=== PATIENT | female | born 1955 | race Caucasian/White ===

== ENCOUNTER → 2024-09-23 | Outpatient (CLI) | payer MEDICARE, BC, SELFPAY ==
--- NOTE | 2024-09-23 08:30 | XR_ITS ---
Examination: Diagnostic digital mammography, unilateral, left Computer aided detection 3-D breast Tomosynthesis, unilateral Date and time of exam: September 23, 2024 0803 hours INDICATIONS: Mammogram January 16, 2024 probably benign calcifications retroareolar region left breast Technique: Nonmagnified MLO, CC views of the left breast have been obtained, reconstructed from 3-D Tomosynthesis images. R2 computer aided detection program utilized for evaluation of suspicious masses and/or abnormal calcifications. 3-D Tomosynthesis images obtained. Findings: Scattered areas of fibroglandular density. Grouped microcalcifications retroareolar region left breast, which currently appear suspicious Impression: BI-RADS category 4: Suspicious for malignancy Suspicious microcalcifications are confirmed retroareolar region left breast, biopsy is needed to exclude breast carcinoma, these calcifications are amenable to stereotactic breast biopsy for diagnosis
== END | disposition home or self-care (01) ==
LOC: CDIM 07:55
PROVIDERS: PCP Internal Medicine; Referring Provider Internal Medicine; Visit Provider Internal Medicine
DX: R92.342 Mammographic extreme density, left breast (principal); R92.0 Mammographic microcalcification found on diagnostic imaging of breast
CPT/HCPCS: 77061; 77065; G0279

== ENCOUNTER → 2024-11-09 | Outpatient (CLI) | payer MEDICARE, SELFPAY ==
[2024-11-09 09:53] LABS: Basophils % (Auto) 0 % (0-2.5); Eosinophils # (Auto) 0.1 Thou/mm3 (0.0-0.5); Eosinophils % (Auto) 1 % (0-10); Hematocrit 48.9 % (36.0-46.0); Immature Granulocytes % (Auto) 0 % (0-0); Immature Granulocytes Auto 0.03 Thou/mm3 (0.00-0.00); Lymphocytes # (Auto) 3.4 Thou/mm3 (1.0-4.8); Lymphocytes % (Auto) 32 % (10-50); Mean Corpuscular HGB Conc 32.7 g/dl (31.0-37.0); Mean Corpuscular Hemoglobin 27.4 pg (25.0-35.0); Mean Corpuscular Volume 84 fL (80-100); Monocytes # (Auto) 0.6 Thou/mm3 (0.0-0.8); Monocytes % (Auto) 6 % (0-12); Neutrophils # (Auto) 6.3 Thou/mm3 (1.8-7.7); Neutrophils % (Auto) 60 % (37-80); Nucleated Red Blood Cell % 0 /100 WBC (0); Partial Thromboplastin Time 26.8 Seconds (22.0-36.0); Platelet Count 296 Thou/mm3 (140-440); Red Blood Count 5.85 Miln/mm3 (4.00-5.20); White Blood Count 10.6 Thou/mm3 (3.6-11.0)
== END | disposition home or self-care (01) ==
LOC: SLAB 11-12 09:17
PROVIDERS: PCP Internal Medicine; Referring Provider Internal Medicine; Visit Provider Radiology Diagnostic Radiology
DX: R92.0 Mammographic microcalcification found on diagnostic imaging of breast (principal)
CPT/HCPCS: 36415; 85025; 85610; 85730

== ENCOUNTER 2024-12-03 14:09 | Outpatient (AMB) | payer MEDICARE, BC, SELFPAY ==
[2024-12-03 14:17] VITALS: BP 123/84; PULSE 105; RESP 18; TEMP 36.2; O2SAT 98; BMI 33.7
--- NOTE | 2024-12-03 14:17 | GSCOFFNT_ITS ---
Vital Signs - [facility] 12/03/24 14:17 Height 1.65 m Height Method Stated Weight 91.824 kg Weight Measurement Method Standing Scale BMI 33.7 BP 123/84 Blood Pressure Source Automatic Cuff Blood Pressure Location Left Upper Arm Position Sitting Respiration 18 Pulse 105 H Pulse Source Monitor Temp 97.2 F Temp Source Temporal Artery Scan Pulse Oximetry (%) 98 Oxygen Delivery Method Room Air Med/Allergies Allergies & Medications Allergies haloperidol (From Haldol) Allergy (Severe, Verified 12/03/24 14:18) arched back ketorolac (From Toradol) Allergy (Intermediate, Verified 12/03/24 14:18) redness and itching morphine Adverse Reaction (Unknown, Verified 12/03/24 14:18) HEADACHE Medication Reconciliation hydrochlorothiazide 25 mg tablet 25 mg PO QAM 06/02/24 [History Confirmed 12/03/24] levothyroxine 100 mcg tablet 100 mcg PO QDAY 06/02/24 [History Confirmed 12/03/24] losartan 100 mg tablet 100 mg PO QDAY 06/02/24 [History Confirmed 12/03/24] metoprolol tartrate 75 mg tablet 75 mg PO QDAY 06/02/24 [History Confirmed 12/03/24] ibuprofen 600 mg tablet 600 mg PO Q6H PRN pain #30 tabs 06/03/24 [Rx Confirmed 12/03/24] tramadol 50 mg tablet 50 mg PO Q6H PRN pain #20 tabs 06/11/24 [Rx Confirmed 12/03/24] MA Intake Visit Data Collection New Patient or Established: Established Patient (seen at [facility] within 3 years) Seen by Clinical Staff ONLY (RN/MA): No Pain Present Currently: No Proposal Development Manager Required: No PCP or OBGYN visit in last 3 months: Yes Hx Now: No Do You Feel Safe at Home: Yes Authorities Contacted: N/A Smoking Status Smoking Status: Current some day smoker Cessation Counseling Provided: STEPHEN was advised that quitting smoking is the single most important factor to protect the health of themselves and their family. Discussed the benefits of quitting smoking with patient. Encouraged patient to quit smoking and provided Cessation assistance materials and resources. Tobacco Use: Nicotine Years smoked: 5 Are you interested in quitting?: No Immunization / Flu Flu Vaccine in the Last 12 Months: No Flu Vaccine Exclusion Criteria: No Exclusion Criteria Past Medical History Past Medical History NEUROLOGIC: Positive Neurological Disorders and Seizures CARDIAC: Positive Cardiac Disorders, Hypercholesterolemia, Hypertension and Varicose Veins; Negative Congestive Heart Failure RESPIRATORY: Negative Chronic Obstructive Pulmonary Disease (COPD) GASTROINTESTINAL: Positive Gastrointestinal Disorders, Hemorrhoids and Obesity; Negative Hepatitis GENITOURINARY: Positive Genitourinary Disorders (interstitial cystitis); Negative Renal Disease REPRODUCTIVE: Positive Previous Pregnancies MUSCULOSKELETAL: Positive Arthritis and Scoliosis ENDOCRINE: Positive Endocrine Disorders and Hypothyroidism; Negative Diabetes Mellitus Type 1 or Diabetes Mellitus Type 2 HEMATOLOGIC: Negative Blood Disorders PSYCHO/SOCIAL: Positive Anxiety OTHER HISTORY: Positive Hospitalization (surgery), Blood Transfusions, Anesthesia Reactions (hard to wake up), Chicken Pox, Measles and Mumps; Negative Autoimmune Disease, Shingles, Blood Transfusion Reaction or Cancer Family History FAMILY HISTORY: Positive Family Respiratory Disorders, Family Cardiac Disorders, Family Cancer and Family Surgery; Negative Family Psychiatric Problems, Family Gastrointestinal Problems or Family Anesthesia Reaction Surgical History SURGICAL: Positive Cardiac Surgery, Angiogram ( clear), Thyroidectomy, Tonsillectomy, Abdominal Surgery, Open Reduction Internal Fixation (right elbow) and Hysterectomy Social History SMOKING STATUS: Smoking status: Current some day smoker ALCOHOL: Alcohol Intake: Never HOUSING: Housing: House HPI HPI Narrative 69F with HTN, HLD, hypothyroidism, obesity referred for symptomatic hemorrhoids s/p surveillance colonoscopy and THD 06/03 here for follow up. During colonoscopy pt was found to have a TVA >5cm which was removed piecemeal and she is due for colonoscopy Dec 2024. She states she has had intermittent bleeding from the perianal skin lately, she believes it is a pimple but denies any pain or itching, is having regular BMs ROS Review of Systems Systems Reviewed: All systems reviewed, normal except as documented Objective/Exam General General Appearance: alert, cooperative and well groomed Resp Respiratory exam: Absent respiratory distress Assessment & Plan Diagnosis / Problem List (1) Encounter for colonoscopy due to history of adenomatous colonic polyps: Status: Acute Assessment & Plan: 69F with large TVA removed piecemeal on colonoscopy 05/2024 due for repeat colonoscopy. We discussed benefits/risks and prep, pt understands and agrees to proceed Advanced Care Planning Advance care planning discussed with:: patient Office Procedures GNS Level of Care Nursing/Assessment Patient Status: Established Patient Nursing Assessment/Reassesment: Medication Reconciliation, Update PMH in EMR and Vital Signs Coordination of Care: Complex Care and Chronic Disease 1-5, Consent,records obtained, informed consent, Education Simp Pt/Fam, Results/Orders obtained and Staff clarify orders Established Patient Charge Established Patient Point Assignment: 90 Established Patient Point Charge: Level 3 (80-115) Patient Portal Questionaires Social History Living Situation History Housing: House Tobacco History Smoking Status: Current some day smoker Alcohol History Alcohol Intake: Never Domestic Abuse History Do You Feel Safe at Home: Yes Review of Systems Report any current symptoms Only answer those that you have currently: Past Medical History Past Medical History Have you ever been diagnosed with any of the following: Neurological Problems Seizures: Yes Cardiology Problems Hypercholesterolemia: Yes Congestive Heart Failure: No Hypertension: Yes Varicose Veins: Yes Respiratory Problems Chronic Obstructive Pulmonary Disease (COPD): No Stomache/Intestinal Problems Hepatitis: No Hemorrhoids: Yes Obesity: Yes Genital/Urinary Problems Renal Disease: No Reproductive Problems Previous Pregnancies: Yes Musculoskeletal Problems Arthritis: Yes Scoliosis: Yes Endocrine Problems Diabetes Mellitus Type 1: No Diabetes Mellitus Type 2: No Hypothyroidism: Yes Psychologic Problems Anxiety: Yes Other Problems Hospitalization: Yes (surgery) Autoimmune Disease: No Shingles: No Blood Transfusions: Yes Blood Transfusion Reaction: No Anesthesia Reactions: Yes (hard to wake up) Chicken Pox: Yes Measles: Yes Mumps: Yes Cancer: No Surgical History Hysterectomy: Yes Thyroidectomy: Yes
== END 2024-12-03 14:32 | disposition home or self-care (01) ==
LOC: HODSRG 14:09
PROVIDERS: PCP Internal Medicine; Referring Provider Internal Medicine; Supervising Provider Surgery; Visit Provider Surgery
DX: Z01.818 Encounter for other preprocedural examination (principal); Z86.0100 Personal history of colon polyps, unspecified
CPT/HCPCS: 99213; G0463

== ENCOUNTER 2024-12-08 08:30 | Day surgery (SDC) | payer MEDICARE, BC, SELFPAY ==
[2024-12-07 14:22] VITALS: BMI 33.7
[2024-12-08] VITALS (10 sets, daily range): BP systolic 144–176; BP diastolic 92–117; PULSE 60–73; RESP 12–20; TEMP 36.2–36.3; O2SAT 94–97; BMI 33.4
--- NOTE | 2024-12-08 09:45 | CHAP ---
Prayed with patient before procedure.
--- NOTE | 2024-12-08 11:10 | SUR.PHASEII ---
1110: Pt. AAOx4, vitals stable, breathing unlabored, no complaint of pain or nausea, no dressing in place, no active bleed noted, report received from Mckenna BERKOWITZ.
--- NOTE | 2024-12-08 12:35 | SUR.PHASEII ---
1235: Pt. AAOx4, vitals stable, breathing unlabored, no complaint of pain or nausea, no dressing in place, no active bleed noted, pt. able to pass gas, pt. tolerated sips of water well, gave discharge instructions to the pt. and her ride, both verbalized understanding and had no further questionsl. Pt. left with all personal belongings.
== END 2024-12-08 11:45 | disposition home or self-care (01) ==
PROVIDERS: PCP Internal Medicine; Referring Provider Surgery; Visit Provider Surgery
PROC: 0DJD8ZZ Inspection of Lower Intestinal Tract, Via Natural or Artificial Opening Endoscopic (ICD-10-PCS; CPT 45378; principal; 2024-12-08 13:00)
DX: Z12.11 Encounter for screening for malignant neoplasm of colon (principal); Z86.0101 Personal history of adenomatous and serrated colon polyps; D12.2 Benign neoplasm of ascending colon; K64.9 Unspecified hemorrhoids; K57.30 Diverticulosis of large intestine without perforation or abscess without bleeding; K63.5 Polyp of colon
CPT/HCPCS: 45380; A4649; J1200; J2175; J2250; J3010

== ENCOUNTER 2024-12-28 14:22 | Outpatient (AMB) | payer MEDICARE, BC, SELFPAY ==
[2024-12-28 14:37] VITALS: BP 138/84; PULSE 65; RESP 19; TEMP 36.6; O2SAT 95; BMI 34.4
--- NOTE | 2024-12-28 14:37 | GSCOFFNT_ITS ---
Vital Signs - [facility] 12/28/24 14:37 Height 1.65 m Height Method Stated Weight 93.695 kg Weight Measurement Method Standing Scale BMI 34.4 BP 138/84 H Blood Pressure Source Automatic Cuff Blood Pressure Location Right Upper Arm Position Sitting Respiration 19 Pulse 65 Pulse Source Monitor Temp 97.8 F Temp Source Temporal Artery Scan Pulse Oximetry (%) 95 Oxygen Delivery Method Room Air Med/Allergies Allergies & Medications Allergies haloperidol (From Haldol) Allergy (Severe, Verified 12/28/24 14:38) arched back ketorolac (From Toradol) Allergy (Intermediate, Verified 12/28/24 14:38) redness and itching morphine Adverse Reaction (Unknown, Verified 12/28/24 14:38) HEADACHE Medication Reconciliation hydrochlorothiazide 25 mg tablet 25 mg PO QAM 06/02/24 [History Confirmed 12/28/24] levothyroxine 100 mcg tablet 100 mcg PO QDAY 06/02/24 [History Confirmed 12/28/24] losartan 100 mg tablet 100 mg PO QDAY 06/02/24 [History Confirmed 12/28/24] metoprolol tartrate 75 mg tablet 75 mg PO QDAY 06/02/24 [History Confirmed 12/28/24] hydrocodone 10 mg-acetaminophen 325 mg tablet 1 tab PO Q12H PRN pain 12/07/24 [History Confirmed 12/28/24] Held on 12/08/24. Instructions: Resume on 12/09/24. MA Intake Visit Data Collection New Patient or Established: Established Patient (seen at [facility] within 3 years) Reason for Visit:: FOLLOW UP Pain Present Currently: No Foreclosure Clerk Required: No PCP or OBGYN visit in last 3 months: Yes Hx Now: No Do You Feel Safe at Home: Yes Authorities Contacted: N/A Smoking Status Smoking Status: Light (< 1 pack/day) Cessation Counseling Provided: STEPHEN was advised that quitting smoking is the single most important factor to protect the health of themselves and their family. Discussed the benefits of quitting smoking with patient. Encouraged patient to quit smoking and provided Cessation assistance materials and resources. Tobacco Use: Cigarette Years smoked: 30 Are you interested in quitting?: No Immunization / Flu Flu Vaccine in the Last 12 Months: No Flu Vaccine Exclusion Criteria: No Exclusion Criteria Past Medical History Past Medical History NEUROLOGIC: Positive Neurological Disorders; Negative Seizures CARDIAC: Positive Cardiac Disorders, Hypercholesterolemia, Hypertension and Varicose Veins; Negative Congestive Heart Failure RESPIRATORY: Negative Chronic Obstructive Pulmonary Disease (COPD) GASTROINTESTINAL: Positive Gastrointestinal Disorders, Hemorrhoids and Obesity; Negative Hepatitis GENITOURINARY: Positive Genitourinary Disorders; Negative Renal Disease REPRODUCTIVE: Positive Previous Pregnancies MUSCULOSKELETAL: Positive Arthritis and Scoliosis ENDOCRINE: Positive Endocrine Disorders and Hypothyroidism; Negative Diabetes Mellitus Type 1 or Diabetes Mellitus Type 2 HEMATOLOGIC: Negative Blood Disorders PSYCHO/SOCIAL: Positive Anxiety OTHER HISTORY: Positive Hospitalization (surgery), Blood Transfusions, Chicken Pox, Measles and Mumps; Negative Autoimmune Disease, Shingles, Blood Transfusion Reaction, Anesthesia Reactions or Cancer Family History FAMILY HISTORY: Positive Family Respiratory Disorders, Family Cardiac Disorders, Family Cancer and Family Surgery; Negative Family Psychiatric Problems, Family Gastrointestinal Problems or Family Anesthesia Reaction Surgical History SURGICAL: Positive Cardiac Surgery, Angiogram, Thyroidectomy, Tonsillectomy, Abdominal Surgery, Open Reduction Internal Fixation and Hysterectomy Social History SMOKING STATUS: Smoking status: Light (< 1 pack/day) ALCOHOL: Alcohol Intake: Never HOUSING: Housing: House Travel Risk Travel Hx Recent Travel: No HPI HPI Narrative 69F with large TVA removed piecemeal on colonoscopy 05/2024, followed by surveillance colonoscopy 12/2024 here for planned follow up. Pt reports feeling well overall with no complaints ROS Review of Systems Systems Reviewed: All systems reviewed, normal except as documented Objective/Exam General General Appearance: alert and cooperative Resp Respiratory exam: Absent respiratory distress Results Colonoscopy and pathology report reviewed: one tubular adenoma <1cm Assessment & Plan Diagnosis / Problem List (1) Encounter to discuss colonoscopy results: Status: Acute Assessment & Plan: 69F with large TVA removed piecemeal on colonoscopy 05/2024, s/p surveillance colonoscopy 12/2024 with findings of one tubular adenoma <1cm. I recommended pt undergo repeat surveillance colonoscopy in 3 years, but pt is encouraged to reach out in the meantime with any concerns or questions Advanced Care Planning Advance care planning discussed with:: other Patient Portal Questionaires Social History Living Situation History Housing: House Tobacco History Smoking Status: Light (< 1 pack/day) Alcohol History Alcohol Intake: Never Domestic Abuse History Do You Feel Safe at Home: Yes Review of Systems Report any current symptoms Only answer those that you have currently: Past Medical History Past Medical History Have you ever been diagnosed with any of the following: Neurological Problems Seizures: No Cardiology Problems Hypercholesterolemia: Yes Congestive Heart Failure: No Hypertension: Yes Varicose Veins: Yes Respiratory Problems Chronic Obstructive Pulmonary Disease (COPD): No Stomache/Intestinal Problems Hepatitis: No Hemorrhoids: Yes Obesity: Yes Genital/Urinary Problems Renal Disease: No Reproductive Problems Previous Pregnancies: Yes Musculoskeletal Problems Arthritis: Yes Scoliosis: Yes Endocrine Problems Diabetes Mellitus Type 1: No Diabetes Mellitus Type 2: No Hypothyroidism: Yes Psychologic Problems Anxiety: Yes Other Problems Hospitalization: Yes (surgery) Autoimmune Disease: No Shingles: No Blood Transfusions: Yes Blood Transfusion Reaction: No Anesthesia Reactions: No Chicken Pox: Yes Measles: Yes Mumps: Yes Cancer: No Surgical History Hysterectomy: Yes Thyroidectomy: Yes
== END 2024-12-28 15:02 | disposition home or self-care (01) ==
PROVIDERS: PCP Internal Medicine; Referring Provider Internal Medicine; Supervising Provider Surgery; Visit Provider Surgery
DX: Z71.2 Person consulting for explanation of examination or test findings (principal); D12.6 Benign neoplasm of colon, unspecified; F17.210 Nicotine dependence, cigarettes, uncomplicated
CPT/HCPCS: 99213; G0463

== ENCOUNTER 2025-03-24 06:38 | Emergency (ER) | payer MEDICARE, BC, SELFPAY ==
[2025-03-24 06:42] VITALS: PULSE 65; RESP 16; O2SAT 97
[2025-03-24 06:47] VITALS: BP 164/91; PULSE 63; RESP 19; TEMP 36.7; O2SAT 98; BMI 34.2
--- NOTE | 2025-03-24 06:52 | XR_ITS ---
Examination: CT brain head without contrast. 2-D sagittal coronal reconstructions Date and time of exam:March 24, 2025 0824 hours INDICATIONS: Onset severe headaches with dizziness blurred vision today CTDI: vol (mGy):53.2 DLP: (mGycm):1107 Technique: Multiple CT axial sections of the brain have been obtained, 5 mm slice thickness. Contrast has not been administered. 2-D sagittal, coronal reconstructions have been obtained Low dose protocols were performed. One or more of the following dose reduction techniques were used; automated exposure control, adjustment of the mA and/or KV according to patient size, use of iterative reconstruction technique. Findings: No significant ventricular enlargement. Intra-axial or extra-axial hemorrhage density is not seen. No mass effect or midline shift Basal cisterns are not remarkable. Fourth ventricle is midline. Cranial vault intact. Impression: Negative for acute hemorrhage, mass effect or midline shift If symptoms persist, consider brain MRI MRA without contrast, stroke protocol, follow-up
--- NOTE | 2025-03-24 06:52 | EKG_ITS ---
[facility] Test Date: 2025-03-24 Pat Name: STEPHEN PATEL Department: Room: - Gender: Female [employer] Specialist: : 1955 Requested By: Beau Reyes (JAVIER) Order Number: [id number] Reading MD: Beau Reyes (TAKER [employer]YING KILN) Measurements Intervals [place] Rate: 60 P: 88 MT: 207 QRS: -24 QRSD: 104 T: 85 QT: 385 QTc: 387 Interpretive Statements SINUS RHYTHM BORDERLINE LEFT AXIS DEVIATION [QRS AXIS < -20] LOW QRS VOLTAGE IN PRECORDIAL LEADS [QRS DEFLECTION < 1.0 mV IN CHEST LEADS] NONSPECIFIC T-WAVE ABNORMALITY Compared to ECG 06/02/2024 09:06:01 Low QRS voltage now present Sinus bradycardia no longer present First degree AV block no longer present Incomplete right bundle-branch block no longer present Myocardial infarct finding no longer present Possible ischemia no longer present T-wave abnormality still present /store/S0/[id number].pdf
--- NOTE | 2025-03-24 06:53 | PD.EDRME ---
Rapid Medical Screening Exam RME Arrival date/time: 03/24/25 06:38 69-year-old female presents to the emergency department today for complaints of headache, dental pain, feeling shaky Chief Complaint: Dental/Oral/Throat Time Seen by Provider: 03/24/25 06:43 Vital signs: Vital Signs Temperature 98.1 F 03/24/25 06:47 Pulse Rate 63 03/24/25 06:47 Respiratory Rate 19 03/24/25 06:47 Blood Pressure 164/91 H 03/24/25 06:47 Pulse Oximetry (%) 98 03/24/25 06:47 Oxygen Delivery Method Room Air 03/24/25 06:47
[2025-03-24 07:38] LABS: Collection Type, Urine Clean Catch
[2025-03-24 07:44] LABS: Bacteria,Urine 1+; Bilirubin,Urine Negative (Negative); Blood,Urine Negative (Negative); Color,Urine Lt-Yellow (Lt Yel-Yel); Glucose, Urine Negative (Negative); Ketones,Urine Negative (Negative); Leukocyte Esterase,Urine Positive (Negative); Nitrite,Urine Positive (Negative); PH,Urine 6.5 (5.0-7.0); Protein,Urine Negative (Neg - Trace); RBC,Urine 3 /hpf (0-3); Specific Gravity,Urine 1.016 (1.001-1.035); Squamous Epithelial Cell,Urine 1 /hpf (0-5); Urobilinogen,Urine Negative mg/dL (0.0-1.0); WBC,Urine 13 /hpf (0-5)
[2025-03-24 08:04] LABS: Amphetamine/Methamp Scrn,U Negative (Negative); Barbiturate Screen,Urine Negative (Negative); Benzodiazepines Screen,Urine Positive (Negative); Benzoylecgonine Screen, Ur Negative (Negative); Fentanyl Screen,Urine Negative (Negative); Opiate Screen,Urine Positive (Negative); THC Screen,Urine Positive (Negative)
[2025-03-24 08:11] LABS: Clarity,Urine Hazy (Clear/Hazy); Culture Indicated,Urine Yes
--- NOTE | 2025-03-24 08:43 | PD.EDADULT ---
ED General RME/HPI General Chief complaint: Dental/Oral/Throat Stated complaint: TOOTHACHE Time Seen by Provider: 03/24/25 06:43 Arrival date/time: 03/24/25 06:38 RME / HPI RME / HPI narrative: 03/24/25 06:38 69-year-old female presents to the emergency department today for complaints of headache, dental pain, feeling shaky DR. MARI MAIN ED EVALUATION: 69 year old female presents to the Emergency Department with complaint of right lower toothache. Pain is severe and she states she cannot see the dentist until the and she is in too much pain. Her pain is described as throbbing and states is radiates to her jaw and now has a headache. Patient states she has been taking [place] for the pain, last taken was at midnight. She states she had bilateral hand numbness and tingling, she states it could be because she is anxious about her tooth. No fevers or chills. No cough or hemoptysis. No puss or drainage. Related Data Home Medications ?Medication ?Instructions ?Recorded ?Confirmed hydrochlorothiazide 25 mg tablet 25 mg PO QAM 06/02/24 12/28/24 levothyroxine 100 mcg tablet 100 mcg PO QDAY 06/02/24 12/28/24 losartan 100 mg tablet 100 mg PO QDAY 06/02/24 12/28/24 metoprolol tartrate 75 mg tablet 75 mg PO QDAY 06/02/24 12/28/24 hydrocodone 10 mg-acetaminophen 1 tab PO Q12H PRN pain 12/07/24 12/28/24 325 mg tablet Held on 12/08/24. Instructions: Resume on 12/09/24. Previous Rx's ?Medication ?Instructions ?Recorded amoxicillin 875 mg-potassium 1 tab PO BID #20 tabs 03/24/25 clavulanate 125 mg tablet Allergies Allergy/AdvReac Type Severity Reaction Status Date / Time haloperidol (From Haldol) Allergy Severe arched back Verified 03/24/25 06:41 ketorolac (From Toradol) Allergy Intermediate redness Verified 03/24/25 06:41 and itching morphine AdvReac Unknown HEADACHE Verified 03/24/25 06:41 Review of Systems Review of Systems Systems Reviewed: All systems reviewed, normal except as documented Narrative Review of Systems: Constitutional: DENIES: fevers; Eyes: DENIES: loss of vision; Head/Ear/Nose: DENIES: loss of hearing. Dental: POSITIVES: right lower toothache Throat: DENIES: dysphagia. Cardiovascular: DENIES: chest pain, dyspnea, or syncope. Respiratory: DENIES: shortness of breath; Gastrointestinal: DENIES: rectal bleeding or melena. Genitourinary: DENIES: dysuria (painful or difficult urination); Musculoskeletal: DENIES: arthralgia (pain in a joint); Skin: DENIES: rash; Neurological: POSITIVES: headache, bilateral hand numbness and tingling (see HPI) DENIES: loss of function or movement; Psychiatric: POSITIVES: anxiety DENIES: recent major life stressor, emotional problem, illicit drug use or abuse; Endocrinology: DENIES: weight change,; Hematologic/Lymphatic: DENIES: abnormal bruising. Allergic/Immunologic: DENIES: urticaria (hives). Past Medical History Past Medical History NEUROLOGIC: Positive Neurological Disorders CARDIAC: Positive Cardiac Disorders, Hypercholesterolemia, Hypertension and Varicose Veins GASTROINTESTINAL: Positive Gastrointestinal Disorders, Hemorrhoids and Obesity GENITOURINARY: Positive Genitourinary Disorders REPRODUCTIVE: Positive Previous Pregnancies MUSCULOSKELETAL: Positive Musculoskeletal Disorders, Arthritis and Scoliosis ENDOCRINE: Positive Endocrine Disorders and Hypothyroidism PSYCHO/SOCIAL: Positive Anxiety OTHER HISTORY: Positive Hospitalization (surgery), Blood Transfusions, Chicken Pox, Measles and Mumps Family History FAMILY HISTORY: Positive Family Respiratory Disorders, Family Cardiac Disorders, Family Cancer and Family Surgery Surgical History SURGICAL: Positive Cardiac Surgery, Angiogram, Thyroidectomy, Tonsillectomy, Abdominal Surgery, Open Reduction Internal Fixation and Hysterectomy Social History SMOKING STATUS: Current some day smoker SUBSTANCE USE: does not use ALCOHOL: Never ED Exam Narrative Physical exam: Physical Exam: General: The vital signs were reviewed. The patient is non-toxic, in no apparent distress and appears healthy with a patent airway, no respiratory distress and has no apparent circulatory problems. Head & Scalp: Normocephalic, atraumatic. Face: Appears normal and is without lesions, deformity. Ears: Left external pinna appears normal. Right external pinna appears normal. Eyes: The sclera is anicteric. No obvious photophobia. The Left and Right Orbit/Lid/Conjunctiva appears normal without swelling, discoloration or injection. Nose: The nose is without deformity, discharge or tenderness; Throat: Appears normal. Multiple missing teeth right lower second molar has a On it no obvious gum swelling visible. Nonetheless she complains of pain in that region >>>>>>>>>the mucous membranes are pink and moist without exudates, redness or mass seen. The tongue appears normal. Neck: The neck is supple and no apparent mass or adenopathy. Chest: The chest wall is normal in size and symmetry and has no chest wall tenderness or crepitus. The patient displays normal ventilator effort without retractions, accessory muscle use and has adequate air movement bilaterally with no wheezes and no rales. Cardiovascular: Regular rate and rhythm; No murmurs, rubs, or gallops; Gastrointestinal: The abdomen appears normal. No obvious hernias or mass. The abdomen is soft and benign, non-distended, with no pain, no guarding and no rebound tenderness. Bowel sounds are present and normal sounding. No CVA tenderness. Genitourinary: Back/Spine: Normal Spektor Extremities/Musculoskeletal/lymphatic: The bilateral upper and lower extremities are warm. There is no evidence of arterial insufficiency. There is no evidence of venous insufficiency/edema. The patient spontaneously moves bilateral upper and lower extremities with no pain and no limitation of movement. There is no apparent, injury or trauma. Skin: The skin is warm, dry and intact. No rashes. No petechia. No purpura. No abnormal bruising. The color is appropriate with no cyanosis. Mental status/Psychiatric: Mental status is appropriate for age. The patient has no apparent delusions, visual hallucinations, no apparent audible hallucinations. The patient has no apparent suicidal thoughts/ideation and no apparent homicidal thoughts/ideation. Neurological: The patient is awake, alert, interactive, cordial, cooperative and is oriented to name and situation. The patient follows commands and answers historical question with no impairment. There is no visual disturbance apparent. The pupils are equal and reactive bilaterally with normal eye movements and no diplopia The bilateral upper and lower extremities have normal strength, normal range of motion and normal functioning. The gait, station and balance appear to be baseline with no acute change Course Quality Measures none Orders Category Date Time Status EKG (ED ONLY) *Do not use* NOW Care 03/24/25 06:[address] head/brain wo con Stat Exams 03/24/25 06:52 Completed EKG (ED Only) Stat Exams 03/24/25 06:52 Draft CBC Stat Lab 05/21/25 08:15 Completed Comprehensive Metabolic Panel Stat Lab 03/24/25 08:15 Completed Drug Screen,Urine Stat Lab 03/24/25 07:32 Completed Free T4 (Free Thyroxine) Stat Lab 03/24/25 08:15 Completed TSH [Thyroid Stimulating Hormone] Stat Lab 03/24/25 08:15 Completed Troponin I Stat Lab 03/24/25 08:15 Completed UA, C/S IF [Urinalysis, C/S if Indicated] Stat Lab 03/24/25 07:32 Completed Urine Culture Stat Lab 03/24/25 07:32 Received VBG [Venous Blood Gas] Stat Lab 03/24/25 08:15 Completed Amoxicillin/Pot Clav 875 [Augmentin 875] Med 03/24/25 08:55 Discontinued 1 tab PO X1 ONE Ibuprofen Tab [Motrin Tab] Med 03/24/25 08:55 Discontinued 600 mg PO X1 ONE Vital Signs Vital signs: Vital Signs Temperature 98.1 F 03/24/25 06:47 Pulse Rate 63 03/24/25 06:47 Respiratory Rate 19 03/24/25 06:47 Blood Pressure 164/91 H 03/24/25 06:47 Pulse Oximetry (%) 98 03/24/25 06:47 Oxygen Delivery Method Room Air 03/24/25 06:47 Discharge Plan Plan Patient Disposition: HOME (Self Care) Prescriptions/Referrals Prescriptions/Med Rec: New amoxicillin-pot clavulanate 875-125 mg tablet 1 tab PO BID Qty: 20 0RF No Action levothyroxine 100 mcg Tablet 100 mcg PO QDAY hydrochlorothiazide 25 mg Tablet 25 mg PO QAM losartan 100 mg Tablet 100 mg PO QDAY metoprolol tartrate 75 mg Tablet 75 mg PO QDAY hydrocodone-acetaminophen 10-325 mg tablet 1 tab PO Q12H PRN (Reason: pain) Patient Comments: TAKE 1 TABLET BY MOUTH TWICE A DAY NEEDED. Referrals: Ez Kay MD [Primary Care Provider] - In 1 week Problem List Clinical Impression: Toothache, Anxiety attack Patient/Caregiver Discharge Instructions Additional Instructions: Please secure an appointment with a dentist as soon as possible to follow-up on your toothache and presumably dental abscess. Return to the ER if you have any fever facial swelling or getting worse. You can use ibuprofen 600 mg every 6 hours to control pain. Take this with food to help prevent your stomach from getting irritated prior to taking the ibuprofen. See your doctor if your pain control is not adequate with the medications your doctor is already prescribing. Print Language: Iranian Stand Alone Forms: Deya Award Info., Patient Portal Info Letter MDM Narrative [facility] hospital course: I, Leslie Guadarrama, am scribing for and in the presence of Dr. Mari. Patient presents With dramatic with toothache and jaw pain and presented was having anxiety attack she is complaining of paresthesias and tingling to her hands she took reassurance really well her CT of her head read by myself shows no bleed no mass normal otherwise. Patient needs antibiotics which Augmentin was given 1 dose along with a dose of ibuprofen as her pain seems to be well-controlled she did take a [place] earlier. She is advised to take antibiotics for the next 7 days get a dental appointment even though she tried to get to her dentist today which was unsuccessful. Her anxiety seems to be controlled with good nursing and reassurance. Urine drug screen came back positive for benzos and opioids. Urine has 13 white cells from a nonclean-catch specimen and though she does not have any urinary symptoms and do not feel there is any indication to treat this in any way. At 1020 hrs. patient is comfortable smiling she was able to reach her dentist and has an appointment this coming Saturday. She does use ibuprofen for pain and knows to return if she has fever getting worse in any way. Laboratory studies were ordered earlier and they reveal a minimal white count hemoglobin is 16.5 is consistent with some polycythemia. She is got some mild hypokalemia probably from hyperventilation from earlier therefore I am not going to treat at this time. Rest of her electrolytes are unremarkable and the rest of the chemistry panel is unremarkable. Clinical Information Provided by patient Medical Records Reviewed [facility] Meds/Rx Considered, not Ordered None Describe details: No IV antibiotics indicated at this time Labs/Rad/Tests considered, not Ordered None Chronic Illness/Social Conditions which may negatively complicate care or outcome(s)-explain: Mental health Add or document further as needed: Hypertension, hypercholesterolemia, hypothyroidism. EKG EKG Interpretation narrative: Twelve-lead EKG was done and read by myself reveals a sinus rhythm rate [address] elevation DC. There is some borderline low voltages in the precordial leads and EKG overall is abnormal EKG Interpretation EKG #1: Date/time of EK03/24/25 0656 am EKG interpretation: Interpreted by me: sinus rhythm, rate 60, no STEMI Lab Interpretation Labs: see narrative above Imaging Imaging interpretation: see narrative above Medication Administration(s) Medication Administration History Discontinued Medications Amoxicillin/Clavulanate Potassium (Amoxicillin/Pot Clav 875 Tablet) 1 tab PO X1 ONE Stop: 03/24/25 08:56 Last Admin: 03/24/25 09:21 Dose: 1 tab Documented By: TM Ibuprofen (Ibuprofen Tab 600 Mg Tablet) 600 mg PO X1 ONE Stop: 03/24/25 08:56 Last Admin: 03/24/25 09:21 Dose: 600 mg Documented By: TM Diagnosis Differential diagnosis: dental problems, toothache, sepsis Most likely dx, and/or detailed dx discussion: Dental abscess causing jaw pain but anxiety attack with paresthesias tingling and initial hypertensive response that calm down with observation and reassurance Dispositon Disposition: Discharge Home Disposition comments: Patient has an appointment she states with her dentist this coming Saturday she knows to return if getting worse especially with fever facial swelling. She also notes she gets quite anxious and has calmed down and seems very reassured at the time of discharge.
[2025-03-24 08:44] LABS: Base Excess, Venous 2 (-3-3); O2 Saturation, Venous 82 % (96-97); PCO2, Venous 36 mmHg (36-56); PO2, Venous 41 mmHg (15-58); pH, Venous 7.46 (7.33-7.66)
[2025-03-24 08:47] VITALS: BP 179/104; PULSE 59; RESP 16; TEMP 36.7; O2SAT 97
[2025-03-24 08:47] LABS: Basophils # (Auto) 0.1 Thou/mm3 (0.0-0.2); Basophils % (Auto) 0 % (0-2.5); Eosinophils # (Auto) 0.1 Thou/mm3 (0.0-0.5); Eosinophils % (Auto) 1 % (0-10); Hematocrit 49.1 % (36.0-46.0); Hemoglobin 16.5 g/dL (12.0-16.0); Immature Granulocytes % (Auto) 0 % (0-0); Immature Granulocytes Auto 0.04 Thou/mm3 (0.00-0.00); Lymphocytes % (Auto) 34 % (10-50); Mean Corpuscular HGB Conc 33.6 g/dl (31.0-37.0); Mean Corpuscular Volume 86 fL (80-100); Monocytes # (Auto) 0.7 Thou/mm3 (0.0-0.8); Monocytes % (Auto) 6 % (0-12); Neutrophils # (Auto) 7.1 Thou/mm3 (1.8-7.7); Neutrophils % (Auto) 59 % (37-80); Nucleated Red Blood Cell % 0 /100 WBC (0); Platelet Count 277 Thou/mm3 (140-440); RDW Standard Deviation 41.2 fL (36.4-46.3); Red Blood Count 5.69 Miln/mm3 (4.00-5.20)
--- NOTE | 2025-03-24 08:51 | PC.NURSE ---
Patient from lobby and taken to room 19 with c/o right lower posterior tooth pain. Dr. Arguello at bedside to assess patient.
[2025-03-24 08:52] VITALS: BP 155/98
[2025-03-24 09:10] LABS: Alanine Aminotransferase 16 U/L (10-49); Albumin, Serum 4.3 gm/dL (3.4-4.8); Albumin/Globulin Ratio 1.5 (1.2-2.2); Alkaline Phosphatase 73 U/L (46-116); Anion Gap 12 (7-16); Aspartate Amino Transferase 19 U/L (0-34); BUN/Creatinine Ratio 14 Ratio (12-20); Bilirubin,Total 1.2 mg/dL (0.3-1.2); Blood Urea Nitrogen 11 mg/dL (9-23); Calcium 9.3 mg/dL (8.3-10.6); Calcium (Corrected) 9.3 mg/dL (8.5-10.1); Carbon Dioxide 24.4 mMol/L (20.0-31.0); Chloride 108 mMol/L (98-107); Creatinine (Component) 0.8 mg/dL (0.6-1.3); Free T4 (Free Thyroxine) 1.38 ng/dL (0.89-1.76); Globulin 2.8 gm/dL (2.3-3.5); Glucose 116 mg/dL (74-106); Osmolality,Calculated 287 (275-295); Potassium 3.3 mMol/L (3.4-5.1); Sodium 144 mMol/L (136-145); Thyroid Stimulating Hormone 0.97 uIU/mL (0.55-4.78); Total Protein 7.1 gm/dL (5.7-8.2); Troponin I < 0.002 ng/mL (0.0-0.045); eGFR > 60 See Note
[2025-03-24] MEDS: IBUPROFEN TAB 600 MG TABLET PO (09:21)
[2025-03-24] MEDS: AMOXICILLIN/POT CLAV 875 TABLET 1 TAB PO (09:21)
[2025-03-24 10:25] VITALS: BP 150/93; PULSE 59; RESP 16; O2SAT 97
--- NOTE | 2025-03-24 10:25 | PC.NURSE ---
Patient lying in gurney quietly, talking on her cell phone, patient states she wants to go home. Patient states pain to right lower jaw 0/10 at this time, Dr. Arguello made aware. Call light within reach.
== END 2025-03-24 10:52 | disposition home or self-care (01) ==
PROVIDERS: Nurse Practitioner Primary Care; Emergency Provider Emergency Medicine; PCP Internal Medicine
DX: K08.89 Other specified disorders of teeth and supporting structures (principal); F41.1 Generalized anxiety disorder; R51.9 Headache, unspecified
CPT/HCPCS: 36415; 70450; 80053; 80307; 81001; 82803; 84439; 84443; 84484; 85025; 87077; 87086; 87186; 93005; 99284; A9270

== ENCOUNTER → 2025-10-14 | Outpatient (CLI) | payer MEDICARE, BC, SELFPAY ==
[2025-10-14 12:20] LABS: Basophils # (Auto) 0.1 Thou/mm3 (0.0-0.2); Basophils % (Auto) 1 % (0-2.5); Eosinophils # (Auto) 0.2 Thou/mm3 (0.0-0.5); Eosinophils % (Auto) 2 % (0-10); Hematocrit 46.5 % (36.0-46.0); Hemoglobin 15.2 g/dL (12.0-16.0); Immature Granulocytes Auto 0.01 Thou/mm3 (0.00-0.00); Lymphocytes # (Auto) 3.7 Thou/mm3 (1.0-4.8); Lymphocytes % (Auto) 42 % (10-50); Mean Corpuscular HGB Conc 32.7 g/dl (31.0-37.0); Mean Corpuscular Hemoglobin 28.0 pg (25.0-35.0); Mean Corpuscular Volume 86 fL (80-100); Monocytes # (Auto) 0.6 Thou/mm3 (0.0-0.8); Monocytes % (Auto) 7 % (0-12); Neutrophils # (Auto) 4.2 Thou/mm3 (1.8-7.7); Neutrophils % (Auto) 48 % (37-80); Nucleated Red Blood Cell # 0.00 Thou/mm3 (0.00-0.00); Nucleated Red Blood Cell % 0 /100 WBC (0); Platelet Count 292 Thou/mm3 (140-440); RDW Standard Deviation 40.9 fL (36.4-46.3); Red Blood Count 5.43 Miln/mm3 (4.00-5.20); White Blood Count 8.8 Thou/mm3 (3.6-11.0)
[2025-10-14 12:33] LABS: Glucose Estimated Average 126 mg/dL (80-131); Hemoglobin A1C 6.0 % Hgb (4.8-6.0)
[2025-10-14 14:29] LABS: Alanine Aminotransferase 24 U/L (10-49); Albumin, Serum 4.4 gm/dL (3.4-4.8); Albumin/Globulin Ratio 1.5 (1.2-2.2); Alkaline Phosphatase 60 U/L (46-116); Anion Gap 11 (7-16); Aspartate Amino Transferase 29 U/L (0-34); BUN/Creatinine Ratio 18 Ratio (12-20); Bilirubin,Total 1.0 mg/dL (0.3-1.2); Blood Urea Nitrogen 14 mg/dL (9-23); Calcium 9.6 mg/dL (8.3-10.6); Calcium (Corrected) 9.6 mg/dL (8.5-10.1); Carbon Dioxide 28.2 mMol/L (20.0-31.0); Cardiac Risk Estimate 5.6 RATIO (3.7-5.6); Chloride 108 mMol/L (98-107); Cholesterol 200 mg/dL (132-200); Creatinine (Component) 0.8 mg/dL (0.6-1.3); Free T4 (Free Thyroxine) 1.43 ng/dL (0.89-1.76); Globulin 2.9 gm/dL (2.3-3.5); Glucose 113 mg/dL (74-106); HDL Cholesterol 36 mg/dL (40-60); LDL Cholesterol,Calculated 106 mg/dL (0-130); Osmolality,Calculated 293 (275-295); Potassium 3.2 mMol/L (3.4-5.1); Sodium 147 mMol/L (136-145); Thyroid Stimulating Hormone 1.31 uIU/mL (0.55-4.78); Total Protein 7.3 gm/dL (5.7-8.2); Triglycerides 288 mg/dL (30-150); eGFR > 60 See Note
[2025-10-14 14:40] LABS: Vitamin D 25 Hydroxy Total 18.8 ng/mL (7.3-40.2)
== END | disposition home or self-care (01) ==
LOC: COPL 11:18
PROVIDERS: PCP Internal Medicine; Referring Provider Internal Medicine; Visit Provider Internal Medicine
DX: I11.0 Hypertensive heart disease with heart failure (principal); E11.9 Type 2 diabetes mellitus without complications; E55.9 Vitamin D deficiency, unspecified; E78.2 Mixed hyperlipidemia; E03.9 Hypothyroidism, unspecified
CPT/HCPCS: 36415; 80053; 80061; 82306; 83036; 84439; 84443; 85025

== ENCOUNTER 2025-10-18 11:05 | Outpatient (AMB) | payer MEDICARE, BC, SELFPAY ==
--- NOTE | 2025-10-18 11:27 | GSCOFFNT_ITS ---
Vital Signs - [facility] 10/18/25 11:28 Height 1.65 m Height Method Measured Weight 95.424 kg Weight Measurement Method Standing Scale BMI 35.0 BP 158/90 H Blood Pressure Source Automatic Cuff Blood Pressure Location Left Upper Arm Position Sitting Respiration 18 Pulse 68 Pulse Source Monitor Temp 97.0 F Temp Source Temporal Artery Scan Pulse Oximetry (%) 94 L Oxygen Delivery Method Room Air Med/Allergies Allergies & Medications Allergies haloperidol (From Haldol) Allergy (Severe, Verified 10/18/25 11:29) arched back ketorolac (From Toradol) Allergy (Intermediate, Verified 10/18/25 11:29) redness and itching morphine Adverse Reaction (Unknown, Verified 10/18/25 11:29) HEADACHE Medication Reconciliation hydrochlorothiazide 25 mg tablet 25 mg PO QAM 06/02/24 [History Confirmed 10/18/25] levothyroxine 100 mcg tablet 100 mcg PO QDAY 06/02/24 [History Confirmed 10/18/25] losartan 100 mg tablet 100 mg PO QDAY 06/02/24 [History Confirmed 10/18/25] metoprolol tartrate 75 mg tablet 75 mg PO QDAY 06/02/24 [History Confirmed 10/18/25] hydrocodone 10 mg-acetaminophen 325 mg tablet 1 tab PO Q12H PRN pain 12/07/24 [History Confirmed 10/18/25] Held on 12/08/24. Instructions: Resume on 12/09/24. amoxicillin 875 mg-potassium clavulanate 125 mg tablet 1 tab PO BID #20 tabs 03/24/25 [Rx Confirmed 10/18/25] MA Intake Visit Data Collection New Patient or Established: Established Patient (seen at [facility] within 3 years) Seen by Clinical Staff ONLY (RN/MA): No Reason for Visit:: POSSIBLE NEW HEMORRHOID Pain Present Currently: No Pain Scale Used: Martinez-Méndez/Numerical Valve Repairer Reclamation Required: No PCP or OBGYN visit in last 3 months: Yes Hx Now: No Do You Feel Safe at Home: Yes Authorities Contacted: N/A Smoking Status Smoking Status: Current some day smoker Cessation Counseling Provided: STEPHEN was advised that quitting smoking is the single most important factor to protect the health of themselves and their family. Discussed the benefits of quitting smoking with patient. Encouraged patient to quit smoking and provided Cessation assistance materials and resources. Tobacco Use: Cigarette Years smoked: 30 Are you interested in quitting?: No Immunization / Flu Flu Vaccine in the Last 12 Months: Yes Flu Vaccine Exclusion Criteria: Already Received Past Medical History Past Medical History NEUROLOGIC: Positive Neurological Disorders; Negative Seizures CARDIAC: Positive Cardiac Disorders, Hypercholesterolemia, Hypertension and Varicose Veins; Negative Congestive Heart Failure RESPIRATORY: Negative Chronic Obstructive Pulmonary Disease (COPD) GASTROINTESTINAL: Positive Gastrointestinal Disorders, Hemorrhoids and Obesity; Negative Hepatitis GENITOURINARY: Positive Genitourinary Disorders; Negative Renal Disease REPRODUCTIVE: Positive Previous Pregnancies MUSCULOSKELETAL: Positive Arthritis and Scoliosis ENDOCRINE: Positive Endocrine Disorders and Hypothyroidism; Negative Diabetes Mellitus Type 1 or Diabetes Mellitus Type 2 HEMATOLOGIC: Negative Blood Disorders PSYCHO/SOCIAL: Positive Anxiety OTHER HISTORY: Positive Hospitalization (surgery), Blood Transfusions, Chicken Pox, Measles and Mumps; Negative Autoimmune Disease, Shingles, Blood Transfusion Reaction, Anesthesia Reactions or Cancer Family History FAMILY HISTORY: Positive Family Respiratory Disorders, Family Cardiac Disorders, Family Cancer and Family Surgery; Negative Family Psychiatric Problems, Family Gastrointestinal Problems or Family Anesthesia Reaction Surgical History SURGICAL: Positive Cardiac Surgery, Angiogram, Thyroidectomy, Tonsillectomy, Abdominal Surgery, Open Reduction Internal Fixation and Hysterectomy Social History SMOKING STATUS: Smoking status: Current some day smoker ALCOHOL: Alcohol Intake: Never HOUSING: Housing: House HPI HPI Narrative 70F with HTN, hypothyroidism, history of symptomatic hemorrhoids colonic polyps here for follow-up of hemorrhoids. Patient states in the last few months she was taking Aleve for her back pain and noticed that she had some rectal b leeding. She stopped taking the Aleve and the bleeding stopped but she still feels discomfort from the hemorrhoids as well as difficulty keeping the area clean. Her bowel movements are soft and regular, not requiring any straining and not loose and at the moment she is not using any remedies ROS Review of Systems Systems Reviewed: All systems reviewed, normal except as documented Objective/Exam General General Appearance: alert, cooperative and well groomed Resp Respiratory exam: Absent respiratory distress Rectal Rectal exam: Present hemorrhoids (Right posterior, left anterior external hemorrhoids) Assessment & Plan Diagnosis / Problem List (1) Hemorrhoids with complication: Status: Acute Assessment & Plan: 70F with history of THD 05/2024 for symptomatic hemorrhoids presenting with recurrence of hemorrhoids. As patient has healthy bowel movements with no diarrhea or straining and is bothered by the hemorrhoids I explained that it is reasonable to pursue surgery again I will this time perform excisional hemorrhoidectomy explained risks of severe pain, bleeding, infection, as well as he had another hemorrhoid recurrence. All questions were answered and patient is agreeable to proceeding Plan: Will schedule excisional hemorrhoidectomy as soon as possible Advanced Care Planning Advance care planning discussed with:: other Office Procedures GNS Level of Care Nursing/Assessment Patient Status: Established Patient Nursing Assessment/Reassesment: Medication Reconciliation, Update PMH in EMR and Vital Signs Coordination of Care: Complex Care and Chronic Disease 1-5, Education Complex Pt/Fam, Consent,records obtained, informed consent, Results/Orders obtained and Staff clarify orders Established Patient Charge Established Patient Point Assignment: 95 Established Patient Point Charge: EP Level 3 (80-115) Patient Portal Questionaires Social History Living Situation History Housing: House Tobacco History Smoking Status: Current some day smoker Alcohol History Alcohol Intake: Never Domestic Abuse History Do You Feel Safe at Home: Yes Review of Systems Report any current symptoms Only answer those that you have currently: Past Medical History Past Medical History Have you ever been diagnosed with any of the following: Neurological Problems Seizures: No Cardiology Problems Hypercholesterolemia: Yes Congestive Heart Failure: No Hypertension: Yes Varicose Veins: Yes Respiratory Problems Chronic Obstructive Pulmonary Disease (COPD): No Stomache/Intestinal Problems Hepatitis: No Hemorrhoids: Yes Obesity: Yes Genital/Urinary Problems Renal Disease: No Reproductive Problems Previous Pregnancies: Yes Musculoskeletal Problems Arthritis: Yes Scoliosis: Yes Endocrine Problems Diabetes Mellitus Type 1: No Diabetes Mellitus Type 2: No Hypothyroidism: Yes Psychologic Problems Anxiety: Yes Other Problems Hospitalization: Yes (surgery) Autoimmune Disease: No Shingles: No Blood Transfusions: Yes Blood Transfusion Reaction: No Anesthesia Reactions: No Chicken Pox: Yes Measles: Yes Mumps: Yes Cancer: No Surgical History Hysterectomy: Yes Thyroidectomy: Yes
[2025-10-18 11:28] VITALS: BP 158/90; PULSE 68; RESP 18; TEMP 36.1; O2SAT 94; BMI 35.0
== END 2025-10-18 12:13 | disposition home or self-care (01) ==
LOC: HODSRG 11:05
PROVIDERS: PCP Internal Medicine; Referring Provider Internal Medicine; Supervising Provider Orthopaedic Surgery Adult Reconstructive Orthopaedic Surgery; Visit Provider Orthopaedic Surgery Adult Reconstructive Orthopaedic Surgery
DX: K64.9 Unspecified hemorrhoids (principal); I10 Essential (primary) hypertension; E03.9 Hypothyroidism, unspecified
CPT/HCPCS: 99213; G0463